=== PATIENT | male | born 1970 | race African-American/Black ===

== ENCOUNTER 2017-03-30 16:38 | Emergency (ER) | payer MEDICAID ==
[~2017-03-30] VITALS: Ht 182.9 cm; Wt 72.6 kg
[2017-03-30 17:30] LABS: BASOPHILS % (AUTO) 1.2 % (0.0-2.0); EOSINOPHILS % (AUTO) 2.8 % (0.0-3.0); LYMPHOCYTES % (AUTO) 41.4 % (20.0-45.0); MEAN CORPUSCULAR HGB CONC 34.2 G/DL (32.0-36.0); MEAN CORPUSCULAR VOLUME 91 FL (80-99); MEAN PLATELET VOLUME 8.1 FL (6.5-10.1); MONOCYTES % (AUTO) 7.7 % (1.0-10.0); NEUTROPHILS % (AUTO) 46.9 % (45.0-75.0); PLATELET COUNT 187 K/UL (150-450); RED BLOOD COUNT 4.03 M/UL (4.70-6.10); RED CELL DISTRIBUTION WIDTH 14.1 % (11.6-14.8); WHITE BLOOD COUNT 7.3 K/UL (4.8-10.8)
[2017-03-30 17:43] LABS: CREATININE 1.3 mg/dL (0.7-1.2); GLOMERULAR FILTRATION RATE 59.4 mL/min (>60)
[2017-03-30 17:44] LABS: ALBUMIN/GLOBULIN RATIO 1.2 (1.0-2.7); CALCIUM 10.2 mg/dL (8.6-10.2); MAGNESIUM 2.1 mg/dL (1.7-2.5); POTASSIUM 3.7 mEQ/L (3.4-4.9); TOTAL PROTEIN 7.3 g/dL (6.6-8.7)
[2017-03-30 18:00] VITALS: BP 169/108
--- NOTE | 2017-03-30 19:26 | Emergency Room Report ---
History of Present Illness General Chief Complaint: Altered Level of Consciousness Source: Patient, EMS Present Illness HPI This patient has a history of insulin dependent diabetes. He presents with hypoglycemia and altered mental status. He is brought in by EMS. EMS were called to the train station where he was altered. He states that she had 2 tamales and that took his typical Humalog. He states that he was getting on a train to meet his family member at [facility] and the next thing he knew he was with EMS on the way here. Apparently he was acting strangely and was confused. He was found by EMS to have a low blood sugar. The blood sugar machine was registering "low." He was given glucagon en route because EMS were unable to get IV access. He feels better now. He denies recent illness. He denies fever or chills. He denies nausea or vomiting. He has no other complaints. Allergies: Uncoded Allergies: BANANAS (Allergy, Unknown, 03/30/17) Patient History Past Medical History: see triage record, DM Social History: Denies: alcohol use, drug use, smoking Reviewed Nursing Documentation: PMH: Agreed, PSxH: Agreed Nursing Documentation-PMH Past Medical History Deferred: Pt Cognitively Impaired Review of Systems All Other Systems: negative except mentioned in HPI Physical Exam Vital Signs Date Time Temp Pulse Resp B/P Pulse Ox O2 Delivery O2 Flow Rate FiO2 03/30/17 16:44 86 16 200/110 99 Room Air 03/30/17 17:00 94.6 Sp02 EP Interpretation: reviewed, normal General Appearance: no apparent distress, alert, GCS 15, non-toxic Head: normocephalic, atraumatic Eyes: bilateral eye PERRL, bilateral eye normal inspection ENT: hearing grossly normal, normal pharynx, no angioedema, normal voice Neck: full range of motion, supple/symm/no masses Respiratory: chest non-tender, lungs clear, normal breath sounds, speaking full sentences Cardiovascular #1: regular rate, rhythm, no edema Gastrointestinal: normal bowel sounds, non tender, soft, non-distended, no guarding, no rebound Rectal: deferred Musculoskeletal: back normal, gait/station normal, normal range of motion, non- tender Neurologic: alert, oriented x3, responsive, motor strength/tone normal, sensory intact, speech normal Psychiatric: judgement/insight normal, memory normal, mood/affect normal, no suicidal/homicidal ideation Skin: normal color, no rash, warm/dry, well hydrated Medical Decision Making Diagnostic Impression: Primary Impression: Hypoglycemia ER Course This patient presents with hypoglycemia. Apparently he was "low" prior to arrival by EMS. He was given glucagon and by the time of my evaluation and cleared his mental status. Blood sugar in emergency Department was in the 40s. He was given D50. He maintained his blood sugar during his ED course without any further episodes of hypoglycemia. I did educate the patient on the importance of needles when urine insulin-dependent diabetic and uses insulin. He indicated understanding. Labs Test 03/30/17 15:45 White Blood Count 7.3 K/UL (4.8-10.8) Red Blood Count 4.03 M/UL (4.70-6.10) Hemoglobin 12.5 G/DL (14.2-18.0) Hematocrit 36.6 % (42.0-52.0) Mean Corpuscular Volume 91 FL (80-99) Mean Corpuscular Hemoglobin 31.0 PG (27.0-31.0) Mean Corpuscular Hemoglobin Concent 34.2 G/DL (32.0-36.0) Red Cell Distribution Width 14.1 % (11.6-14.8) Platelet Count 187 K/UL (150-450) Mean Platelet Volume 8.1 FL (6.5-10.1) Neutrophils (%) (Auto) 46.9 % (45.0-75.0) Lymphocytes (%) (Auto) 41.4 % (20.0-45.0) Monocytes (%) (Auto) 7.7 % (1.0-10.0) Eosinophils (%) (Auto) 2.8 % (0.0-3.0) Basophils (%) (Auto) 1.2 % (0.0-2.0) Sodium Level 142 mEQ/L (135-145) Potassium Level 3.7 mEQ/L (3.4-4.9) Chloride Level 98 mEQ/L (98-107) Carbon Dioxide Level 31 mEQ/L (20-30) Anion Gap 13 (5-15) Blood Urea Nitrogen 13 mg/dL (7-23) Creatinine 1.3 mg/dL (0.7-1.2) Estimat Glomerular Filtration Rate 59.4 mL/min (>60) Glucose Level 60 mg/dL (74-106) Calcium Level 10.2 mg/dL (8.6-10.2) Magnesium Level 2.1 mg/dL (1.7-2.5) Total Bilirubin 0.4 mg/dL (0.0-1.2) Aspartate Amino Transf (AST/SGOT) 67 U/L (5-40) Alanine Aminotransferase (ALT/SGPT) 156 U/L (3-41) Alkaline Phosphatase 719 U/L (40-129) Total Protein 7.3 g/dL (6.6-8.7) Albumin 4.1 g/dL (3.5-5.2) Globulin 3.2 g/dL Albumin/Globulin Ratio 1.2 (1.0-2.7) EKG Diagnostic Results Rate: normal Rhythm: NSR ST Segments: no acute changes Rhythm Strip Diag. Results EP Interpretation: yes Rate: 70's Rhythm: NSR, no PVC's, no ectopy Last Vital Signs Date Time Temp Pulse Resp B/P Pulse Ox O2 Delivery O2 Flow Rate FiO2 03/30/17 18:49 97.6 03/30/17 18:00 87 16 169/108 95 Room Air Status: improved Disposition: HOME, SELF-CARE Condition: Improved PAOLA BRUNSON D.O. March 30, 2017 19:26
[2017-03-30] MEDS ORDERED: NORCO 10-325 T1 EACH ORAL (19:52)
[2017-03-30] MEDS ORDERED: LISINOPRIL20 MG ORAL (20:00)
[2017-03-30] MEDS ORDERED: LANTUS5 UNITS SUBQ (20:05)
[2017-03-30] MEDS ORDERED: HUMALOG100 UNIT/1 SUBQ (20:11)
[2017-03-30] MEDS ORDERED: FLONASE ALLERG9.9 ML NS (20:22)
[2017-03-30] MEDS ORDERED: ADVIL200 MG ORAL (20:27)
[2017-03-30] MEDS ORDERED: OMEPRAZOLE20 M2 ORAL (20:32)
[2017-03-30] MEDS ORDERED: KEPPRA500 M4 ORAL (20:35)
[2017-03-30 20:37] VITALS: BP 169/108
--- NOTE | 2017-03-31 17:11 | Cardiology Report ---
APPROVED REPORT EKG Measurement Heart [id number] Normal sinus rhythm Voltage criteria for left ventricular hypertrophy Abnormal ECG
== END 2017-03-30 20:37 | disposition home or self-care (01) ==
LOC: EDBD 16:38 → EMR 17:15
DX: E11.649 Type 2 diabetes mellitus with hypoglycemia without coma (principal); Z79.4 Long term (current) use of insulin; Z91.018 Allergy to other foods
CPT/HCPCS: 36415; 80053; 82962; 83735; 85025; 93005; 96374